=== PATIENT | male | born 1950 | race Caucasian/White ===

== ENCOUNTER → 2019-09-30 | Outpatient (CLI) | payer OTHER ==
[~2019-09-30] VITALS: Ht 190.5 cm; Wt 103.0 kg
[~2019-09-30] MED LIST: ANAPROX DS550 MG PO; ASPERCREME76.5 GM; CELEBREX100 MG/1 C PO; DOANS; IBUPROFEN 200200 M1 PO; MEDROLDOSEPACK PO; MELATONIN5 MG PO; MOBIC7.5 MG PO; NORCO 5-325 TA1 EAC1 PO; SALONPAS1 EACH; STOOL SOFTNER; TUMERIC
[2019-09-30 14:18] VITALS: BP 112/78
--- NOTE | 2019-09-30 15:02 | NUR ---
Pain Clinic Assessment: 1. History of Osteoarthritis: knee History of Rheumatoid Arthritis: no 2. Height: 6 ft. 3 in. 190.5 cm. Weight: 227.0 lb. oz. 102.967 kg. Patient's BMI: 28.4 3. Vital Signs: BP: 112/78 Pulse: 80 Resp: 14 Temp: 02 Sat: 98 ECG Mon: 4. Pain Intensity: 6 5. Fall Risk: Dizziness: N Needs help standing or walking: N Fallen in the last 3 months: N Fall risk comments: 6. Patient on Blood Thinner: None 7. History of Hypertension: N 8. Opioid Therapy greater than 6 weeks: Opiate Contract Signed: 9. Risk Assessment Tool Provided: 0-low risk 10. Functional Assessment Tool: 57/70 11. Recreational Drug Use: Never Drug Type: Tobacco Use: Never Smoker Tobacco Type: Amount or Packs/day: How Many Years: Alcohol Use: Yes Frequency: Weekly Quant: 1-2 week
--- NOTE | 2019-10-10 09:29 | HPC ---
[facility] [place] [address] PAIN MANAGEMENT CONSULTATION Name: ANASTACIA PAYNE Room #: REG PASQUALE Colon.#: [id number] Admission: 09/30/19 Attend Phys: John White MD Discharge: Date of : 48 Report #: [id number] THIS REPORT FOR: cc: Landon Rosario MD, Bernard O. MD Morgan,John Burton MD ~ CC: Landon White DATE OF SERVICE: 09/30/2019 CHIEF COMPLAINT: Low back pain radiating into the anterior thighs bilaterally. 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 He spent 24 hours in the hospital, trying to find himself comfortable place. He is 6 feet 3. After that his back hurt and has not gotten better since. The back pain is only a portion, the other part is a radiating radicular like pain into his anterior thigh. This follows in the L3-L4 distribution. This is important because he has a concordant disk extrusion at that level. He has tried to exercise a little bit, but the pain is too severe. He scores his average daily pain as a 6/10. Dr. Rosario provided him with 2 or 3 different nonsteroidal anti-inflammatory drugs. Not only were they ineffective but they seemed to cause swelling and he is convinced they made his pain worse that has been persistent. He tried Celebrex, meloxicam, Anaprox, and all of them were ineffective. Celebrex in particular was bothersome and caused swelling as well. ALTHOUGH HE DOES NOT LIST SULFA AN ALLERGY, MY GUESS IS THAT HE IS ALLERGIC TO SULFA DRUGS as well and I gave him precautions about using them in the future. Other medicines currently are melatonin, Salonpas, Icy Hot, Aspercreme, turmeric, stool softener. I do note that he has taken some [id number]-[id number] Advil, so he does not have a true full class nonsteroidal anti-inflammatory allergy. PAST MEDICAL HISTORY: Positive for kidney stones. PAST SURGICAL HISTORY: He has had a fourth arthroscopic surgery on his left knee. SOCIAL HISTORY: Denies use of tobacco, drinks alcohol occasionally in social setting. He is a retired dentist. REVIEW OF SYSTEMS: Positive for some dyspnea on exertion, fatigue and insomnia. He has a history of kidney stones. [facility] [address] [place] [address] PAIN MANAGEMENT CONSULTATION Name: ANASTACIA PAYNE Room #: REG PASQUALE ColonKamini#: [id number] Admission: 09/30/19 Attend Phys: John White MD Discharge: Date of : 48 Report #: [id number] PHYSICAL EXAMINATION: GENERAL: Pleasant 69-year-old gentleman. VITAL SIGNS: His blood pressure is 112/78, heart rate 80, respirations 14, BMI is 28.4. MUSCULOSKELETAL: Moves independently from sitting to standing position and walks with a slow, but stable gait. He does not stand directly upright, takes a while for him to straighten up. He has some pain with forward flexion and extension of the spine. Straight leg raising is positive, more so on the right than the left. There is some tenderness around his left knee that is from prior surgery. Deep tendon reflexes are diminished in the left patellar tendon. There is definitely an asymmetry noted. Sensation is diminished, radiating a bit down into the right leg below the knee. His radiating radicular pattern is asymmetrical, pain radiating further on the right than the left. MRI: The MRI scan is reviewed. I do not have the films because it would not load, but I was able to read the report and it does discuss degenerative conditions at several levels. Most prominent and concordant is the L3-L4 extruded disk, which extends into the lateral recess. IMPRESSION: Lumbar radiculopathy, L3-L4. RECOMMENDATION: Epidural steroid injection under fluoroscopic guidance. PROCEDURE: After informed consent, he was taken to the fluoroscopic suite, he was placed prone, skin was prepped with ChloraPrep. Skin was anesthetized over the L3-L4 interspace. Using biplanar fluoroscopic views, I advanced the needle in the epidural space with good loss of resistance technique. There was no blood or CSF aspirated. The 1 mL of Omnipaque demonstrated excellent epidurogram. Most of the medicine, however, extending caudad rather than cephalad. It was followed by 3 mL of 0.5% lidocaine mixed with 80 mg of triamcinolone. He tolerated the procedure well. There were no complications. He was kept in the recovery room for 30 minutes and discharged. I plan to see him back in the pain clinic in 1-2 months. <ELECTRONICALLY SIGNED> By: John White MD 10/10/19 0929 [id number] 30 John White MD /nt
== END | disposition home or self-care (01) ==
LOC: PAIN 06:58
PROVIDERS: ATTEND Anesthesiology Pain Medicine
DX: M54.5 Low back pain (principal); M54.16 Radiculopathy, lumbar region; Z79.899 Other long term (current) drug therapy

== ENCOUNTER → 2020-03-26 | Outpatient (CLI) | payer OTHER ==
[~2020-03-26] VITALS: Ht 190.5 cm; Wt 104.2 kg
[2020-03-26 08:54] VITALS: BP 106/70
--- NOTE | 2020-03-26 09:09 | NUR ---
Pain Clinic Assessment: 1. History of Osteoarthritis: knee History of Rheumatoid Arthritis: no 2. Height: 6 ft. 3 in. 190.5 cm. Weight: 229.8 lb. oz. 104.237 kg. Patient's BMI: 28.7 3. Vital Signs: BP: 106/70 Pulse: 78 Resp: 14 Temp: 02 Sat: 95 ECG Mon: 4. Pain Intensity: 6 5. Fall Risk: Dizziness: Y Needs help standing or walking: Y Fallen in the last 3 months: N Fall risk comments: 6. Patient on Blood Thinner: None 7. History of Hypertension: N 8. Opioid Therapy greater than 6 weeks: Y Opiate Contract Signed: 9. Risk Assessment Tool Provided: 0-low risk 10. Functional Assessment Tool: 11. Recreational Drug Use: Never Drug Type: Tobacco Use: Never Smoker Tobacco Type: Amount or Packs/day: How Many Years: Alcohol Use: Yes Frequency: Special Occasions Quant: 1
== END | disposition home or self-care (01) ==
LOC: PAIN 06:54
PROVIDERS: ATTEND Anesthesiology Pain Medicine
DX: M54.16 Radiculopathy, lumbar region (principal); G89.29 Other chronic pain; Z98.890 Other specified postprocedural states; Z79.899 Other long term (current) drug therapy; Z88.8 Allergy status to other drugs, medicaments and biological substances